=== PATIENT | female | born 1990 | race African-American/Black ===

== ENCOUNTER 2024-10-25 19:06 | Emergency (ER) | payer SELFPAY ==
--- NOTE | 2024-10-25 19:23 | EDPHYS ---
Physician Documentation [facility] Name: Deana Villareal Age: 33 yrs Sex: Female : 1990 Arrival Date: 10/25/2024 Time: 19:06 Bed IW1 Private MD: ED Physician Magdaleno Kelsey HPI: 10/25 19:25 This 33 yrs old Female presents to ER via Ambulatory with complaints of Toothache. sb4 19:25 Diffuse dental pain for 3 days now, slowly getting worse. States the pain is radiating sb4 to her ears and her head. Denies any fever or chills. Has known bad teeth, has not seen a dentist in quite some time. 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 - Infectious Disease History:: Denies. - Social history:: Smoking status: Patient reports the use of cigarette tobacco products, denies chronic smoking, but will smoke occasionally, Patient uses alcohol, occasionally. ROS: 19:25 Constitutional: Negative for fever, chills, and weight loss, sb4 19:25 ENT: Positive for dental pain, 19:25 All other systems are negative, Exam: 19:25 Head/Face: Normocephalic, atraumatic. Eyes: Extra-ocular motions intact. Periorbital sb4 areas with no swelling, redness, or edema. ENT: Mucous membranes moist. Respiratory: No increased work of breathing, no retractions or nasal flaring. Skin: Warm, dry with normal turgor. Normal color with no rashes, no lesions, and no evidence of cellulitis. 19:25 Constitutional: The patient appears alert, awake, uncomfortable, 19:25 ENT: TM's: are normal, no acute changes, Dental exam: dental caries, that is moderate, diffusely, fractured teeth are noted, specifically the lower left first molar (#19), gum swelling, that is mild, Vital Signs: 19:11 BP 145 / 100; Pulse 79; Resp 18; Temp 98.4; Pulse Ox 98% ; Weight 58.97 kg; Height 5 kb4 ft. 1 in. ; Pain 9/10; 19:11 Body Mass Index 24.56 (58.97 kg, 154.94 cm) kb4 19:11 Pain Scale: Adult kb4 MDM: 19:22 Medical Screening Exam initiated sb4 19:26 Differential diagnosis: dental caries, gingivitis, dental abscess. Data reviewed: vital sb4 signs, nurses notes, and as a result, I will discharge patient. Counseling: I had a detailed discussion with the patient and/or guardian regarding the historical points, exam findings, and any diagnostic results supporting the discharge/admit diagnosis, the presence of at least one elevated blood pressure reading (>120/80) during this emergency department visit, the need for outpatient follow up, for definitive care, to return to the emergency department if symptoms worsen or persist or if there are any questions or concerns that arise at home. Administered Medications: 19:37 Drug: Hydrocodone-Acetaminophen PO (7.5 mg-325 mg) 1 tabs PO once Route: PO; kb4 19:38 Follow up: Response: Medication administered at discharge. kb4 19:37 Drug: Ondansetron PO 4 mg PO once Route: PO; kb4 19:38 Follow up: Response: Medication administered at discharge. kb4 19:38 Drug: Clindamycin PO 300 mg PO once Route: PO; kb4 19:38 Follow up: Response: Medication administered at discharge. kb4 19:38 Drug: Ketorolac IM 30 mg IM once Route: IM; Site: right deltoid; kb4 19:38 Follow up: Response: Medication administered at discharge. kb4 Disposition: 20:04 Co-signature as Attending Physician, Magdaleno Kelsey DO I reviewed the patient's care tt7 provided by the Advanced Practice Provider and agree with the diagnosis and treatment plan. Disposition Summary: 10/25/24 19:22 Discharge Ordered Notes: Location: Home sb4 Problem: new sb4 Symptoms: have improved sb4 Condition: Stable sb4 Diagnosis - Dental caries, unspecified sb4 Followup: sb4 - With: Private Physician - When: As needed - Reason: Recheck today's complaints, Re-evaluation by your physician Discharge Instructions: - Discharge Summary Sheet sb4 - Dental Caries, Adult sb4 - Dental Pain, [id number] sb4 Forms: - Antibiotic Education sb4 - Patient Portal Instructions sb4 - Leadership Thank You Letter sb4 Prescriptions: - Peridex 0.12 % Mucous Membrane Mouthwash - swish 15 milliliter BUCCAL route 2 times per day; 473 milliliter; Refills: 0, sb4 Product Selection Permitted - Clindamycin HCl 300 mg Oral Capsule - take 1 capsule ORAL route every 6 hours for 10 days; 40 capsule; Refills: 0, sb4 Product Selection Permitted - Ibuprofen 800 mg Oral Tablet - take 1 tablet ORAL route every 8 hours As needed take with food; 30 tablet; sb4 Refills: 0, Product Selection Permitted Signatures: Krystle Chadwick PA-C PA-C sb4 Shae Lazo RN RN kb4 Magdaleno Kelsey DO DO tt7
--- NOTE | 2024-10-25 19:23 | ER ---
Nurse's Notes [facility] Name: Deana Villareal Age: 33 yrs Sex: Female : 1990 Arrival Date: 10/25/2024 Time: 19:06 Bed IW1 Private MD: Diagnosis: Dental caries, unspecified Presentation: 10/25 19:11 Chief complaint: Patient states: pt states entire jaw hurts and radiates to entire kb4 head, started 3days ago, worse today. Coronavirus screen: At this time, unable to obtain information related to travel outside the [place] Ebola Screen: No symptoms or risks identified at this time. Initial Sepsis Screen: Does the patient meet any 2 criteria? No. Patient's initial sepsis screen is negative. Does the patient have a suspected source of infection? No. Patient's initial sepsis screen is negative. Risk Assessment: Do you want to hurt yourself or someone else? Patient reports no desire to harm self or others. Onset of symptoms was October 23, 2024 at 00:00. Care prior to arrival: Medication(s) given: ibuprophen 200mg. 19:11 Method Of Arrival: Ambulatory 4 19:11 Acuity: ZOYA 4 kb4 Triage Assessment: 19:17 General: Appears distressed, uncomfortable, Behavior is calm, cooperative. Pain: kb4 Complains of pain in face. EENT: Reports pain in forehead, right jaw and left jaw. 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 - Infectious Disease History:: Denies. - Social history:: Smoking status: Patient reports the use of cigarette tobacco products, denies chronic smoking, but will smoke occasionally, Patient uses alcohol, occasionally. Screenin:39 [facility] ED Fall Risk Assessment (Adult) History of falling in the last 3 months, kb4 including since admission No falls in past 3 months (0 pts) Confusion or Disorientation No (0 pts) Intoxicated or Sedated No (0 pts) Impaired Gait No (0 pts) Mobility Assist Device Used No (0 pt) Altered Elimination No (0 pt) Score/Fall Risk Level 0 - 2 = Low Risk. Abuse screen: Denies threats or abuse. Denies injuries from another. Nutritional screening: No deficits noted. Tuberculosis screening: No symptoms or risk factors identified. Assessment: 19:39 Reassessment: Patient appears in no apparent distress at this time. see triage kb4 assessment. 19:39 Reassessment: discharge pending shot time. al5 19:57 Reassessment: patient denies any reactions to shot medication. patient discharged to al5 home in no apparent distress, respirations even and unlabored, skin warm and dry. Vital Signs: 19:11 BP 145 / 100; Pulse 79; Resp 18; Temp 98.4; Pulse Ox 98% ; Weight 58.97 kg; Height 5 kb4 ft. 1 in. ; Pain 9/10; 19:11 Body Mass Index 24.56 (58.97 kg, 154.94 cm) kb4 19:11 Pain Scale: Adult kb4 ED Course: 19:07 Patient arrived in ED. im 19:14 Krystle Chadwick PA-C is PHCP. sb4 19:14 Magdaleno Kelsey DO is Attending Physician. sb4 19:16 Triage completed. kb4 19:17 Arm band placed on right wrist. kb4 19:39 Patient has correct armband on for positive identification. Provided Education on: kb4 follow up care . 19:39 No provider procedures requiring assistance completed. Patient did not have IV access kb4 during this emergency room visit. 20:00 Yareli Tesfaye, RN is Primary Nurse. al5 Administered Medications: 19:37 Drug: Hydrocodone-Acetaminophen PO (7.5 mg-325 mg) 1 tabs PO once Route: PO; kb4 19:38 Follow up: Response: Medication administered at discharge. kb4 19:37 Drug: Ondansetron PO 4 mg PO once Route: PO; kb4 19:38 Follow up: Response: Medication administered at discharge. kb4 19:38 Drug: Clindamycin PO 300 mg PO once Route: PO; kb4 19:38 Follow up: Response: Medication administered at discharge. kb4 19:38 Drug: Ketorolac IM 30 mg IM once Route: IM; Site: right deltoid; kb4 19:38 Follow up: Response: Medication administered at discharge. kb4 Medication: 19:39 VIS not applicable for this client. kb4 Outcome: 19:22 Discharge ordered by MD. sb4 19:57 Discharged to home ambulatory, al5 19:57 Condition: good 19:57 Discharge instructions given to patient, Instructed on discharge instructions, follow up and referral plans. medication usage, Demonstrated understanding of instructions, follow-up care, medications, Prescriptions given X 3, 20:02 Patient left the ED. al5 Signatures: Krystle Chadwick, PAHaleighC PAHaleighC sb4 Sarita Cabrera Amanda RN RN al5 Shae Lazo RN RN kb4 Corrections: (The following items were deleted from the chart) 19:40 19:39 Discharge instructions given to patient, Instructed on discharge instructions, kb4 follow up and referral plans. medication usage, Demonstrated understanding of instructions, follow-up care, medications, Prescriptions given X 2, kb4 20:02 19:39 Discharged to home ambulatory, kb4 al5 20:02 19:39 Condition: good kb4 al5 20:02 19:39 Discharge instructions given to patient, Instructed on discharge instructions, al5 follow up and referral plans. medication usage, Demonstrated understanding of instructions, follow-up care, medications, Prescriptions given X 3, kb4
[2024-10-25] MEDS ORDERED: ONDANSETRON 4 MG (ODT) TAB ONE (19:33)
[2024-10-25] MEDS ORDERED: KETOROLAC 30 MG/ML INJ ONE (19:33)
[2024-10-25] MEDS ORDERED: HYDROCODONE/APAP 7.5/325 MG TAB ONE (19:34)
[2024-10-25 20:09] VITALS: BP 145/100; TEMP 98.4; O2SAT 98
== END 2024-10-25 20:02 | disposition home or self-care (01) ==
LOC: ER 19:06
DX: K02.9 Dental caries, unspecified (principal); F17.210 Nicotine dependence, cigarettes, uncomplicated; Z88.0 Allergy status to penicillin; Z88.8 Allergy status to other drugs, medicaments and biological substances; Z91.013 Allergy to seafood; Z91.041 Radiographic dye allergy status
CPT/HCPCS: 96372; 99284; Q0162

== ENCOUNTER 2024-11-15 08:57 | Emergency (ER) | payer SELFPAY ==
--- OUTSIDE RECORDS SUMMARY | 2024-11-15 09:03 | XMS REPORT | Continuity of Care Document ---
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 Interpretation Comme nts UA ICTOTEST FOR BILIRUBIN (t est code = ICTOU) NEGATIVE NEGATIVE URINE SPECIMEN TYPE CLEAN CATCHWHAT DRUGS HAVE BEEN TAKEN? UNKNOWNUA MICROSCOPIC 2022-12-14 20:43:00* Test Item Value Reference Range Interpretation Comme nts UA RBC (test code = RBCU) 3-5 RBC/HPF 0-3 A UA WBC (test code = XWBCU) 3-5 WBC/HPF 0-5 UA EPITHELIAL CELLS (test co de = EPIU) FEW EPI/HPF FEW UA BACTERIA (test code = XBACU) FEW NONE UA MUCUS (test code = MUCU) MODERATE #/LPF NONE A URINE SPECIMEN TYPE CLEAN CATCHWHAT DRUGS HAVE BEEN TAKEN? UNKNOWNDRUGS OF ABUSE SCREEN [id number] 20:43:00* Test Item Value Reference Range Interpretation Comme nts UR COCAINE (test code = COCAU) NEGATIVE NEGATIVE Cut off Value: 3 00 ng/mL UR CANNABINOIDS (THC) (test code = CANU) POSITIVE NEGATIVE A Cut off Value : 50 ng/mL UR AMPHETAMINE (test code = AMPHU) NEGATIVE NEGATIVE Cut off Value: 1 000 ng/mL UR BARBITURATE QUAL (test code = BARBQLU) NEGATIVE NEGATIVE Cut off Value: 2 00 ng/mL UR BENZODIAZEPINE (test code = BENZU) NEGATIVE NEGATIVE Cut off Value: 2 00 ng/mL UR OPIATES QUAL (test code = OPIAQLU) NEGATIVE NEGATIVE Cut off Value: 3 00 ng/mL UR PHENCYCLIDINE (PCP) (test code = PHENCU) NEGATIVE NEGATIVE Cut off Ratna ue: 25 ng/mL URINE SPECIMEN TYPE CLEAN CATCHWHAT DRUGS HAVE BEEN TAKEN? UNKNOWNRPR Ser-Titr 2022-08-23 19:34:48* Test Item Value Reference Range Interpretation Comme nts T pallidum Ab Ser Ql Aggl (t est code = 63892-2) NEGATIVE Negative, Equivocal Reagin+T pallidum IgG+IgM SerPl-Imp (test code = 63107-0) NEGATIVE Negative HHSRUBV IgG Spv-[id number] 12:49:57* Test Item Value Reference Range Interpretation Comme nts RUBV IgG Ser-Imp (test code = 55125-1) RUBELLA NON-IMMUNE Immune A HHSHIV1+2 Ab SerPl Ql [id number] 12:32:03* Test Item Value Reference Range Interpretation Comme nts HIV1+2 Ab SerPl Ql IA (test code = 29060-0) NEGATIVE Negative HHSBASIC METABOLIC [id number] 02:48:00* Test Item Value Reference Range Interpretation Comme nts SODIUM (test code = NA) 138 MMOL/L 137-145 N POTASSIUM (test code = K) 3.5 MMOL/L 3.5-5.1 N CHLORIDE (test code = CL) 104 MMOL/L 98-107 N CARBON DIOXIDE (test code = CO2) 16 MMOL/L 22-30 L GLUCOSE (test code = GLU) 120 MG/DL 74-106 H BLOOD UREA NITROGEN (test code = BUN) 3 MG/DL 7-17 L GLOMERULAR FILTRATION RATE (test code = GFR) > 60 The Glomerular Filtration Rate is a calculated parameterbased on serum Creatinine, patient age and sex. GFR valuesless than 60 mL/min/1.73 square meters are indicative ofChronic Kidney Disease. Values less than 15 mL/min/1.73square meters indicate Kidney failure. The calculation forGFR is based on the CKD-EPI (2020) calculation. This formulais race indifferent and is the recommended formula for GFRby the National Kidney Foundation for Adults.The GFR will not calculate if the sex is unknown or if thepatient's age is <18 years. CREATININE (test code = CREAT) 0.40 MG/DL 0.52-1.04 L CALCIUM (test code = CA) 10.7 MG/DL 8.4-10.2 H HEPATIC FUNCTION [id number] 02:48:00* Test Item Value Reference Range Interpretation Comme nts TOTAL PROTEIN (test code = PROT) 9.0 G/DL 6.3-8.2 H [facility] Clinical D iagnostic has made us aware of newinformation regarding the potential interference ofEltrombopag (a bone marrow stimulant used to treatthrombocytonmenia and aplastic anemia) with specific assayson the Vitros 5600 of which Total Protein is one of thoseassays performed in our lab.Interference testing performed at Ortho determined thatEltrombopag does interfere with Vitros Total Protein asfollowsEltrombopag Interference for Vitros Product Total Protein: Eltrombopag Max Observed Avg. BiasConcentration Concentration Concentration 2.5 mg/dl 6.0 g/dl +0.41 +0.34 3.5 mg/dl 6.0 g/dl +0.50 +0.45 5 mg/dl 6.0 g/dl +0.73 +0.65 2.5 mg/dl 8.0 g/dl +0.44 +0.41 3.5 mg/dl 8.0 g/dl +0.55 +0.52 5 mg/dl 8.0 g/dl +0.86 +0.77 ALBUMIN (test code = ALB) 4.8 G/DL 3.5-5.0 N BILIRUBIN TOTAL (test code = BILT) 0.9 MG/DL 0.2-1.3 N Eltrombopag Inte rference for Vitros Product TBil, BuBc: Assay Eltrombopag Analyte/ Max Observed Avg. Bias Concentration Concentration Concentration TBil 7mg/dl TBil/ 1.2mg/dl +0.23mg.dl +0.20mg/dlBuBc 3.5mg/dl Bu/0.8mg/dl +0.25mg/dl +0.24mg/dlBuBc 7 mg/dl Bu/14.2mg/dl +0.38mg/dl +0.25mg/dlBuBc 5mg/dl Bc/0mg/dl +0.25mg/dl +0.15mg/dlBuBc 3.5mg/dl Bc/2.8mg/dl +0.25mg/dl +0.23mg/dl BILIRUBIN DIRECT (test code = BILD) 0.0 MG/DL 0.0-0.3 N Eltrombopag Inte rference for Vitros Product TBil, BuBc: Assay Eltrombopag Analyte/ Max Observed Avg. Bias Concentration Concentration Concentration TBil 7mg/dl TBil/ 1.2mg/dl +0.23mg.dl +0.20mg/dlBuBc 3.5mg/dl Bu/0.8mg/dl +0.25mg/dl +0.24mg/dlBuBc 7 mg/dl Bu/14.2mg/dl +0.38mg/dl +0.25mg/dlBuBc 5mg/dl Bc/0mg/dl +0.25mg/dl +0.15mg/dlBuBc 3.5mg/dl Bc/2.8mg/dl +0.25mg/dl +0.23mg/dl SGOT/AST (test code = AST) 20 UNITS/L 14-36 N SGPT/ALT (test code = ALT) 15 UNITS/L 0-34 N ALKALINE PHOSPHATASE (test code = ALKP) 59 UNITS/L 38-126 N [id number] 02:48:00* Test Item Value Reference Range Interpretation Comme nts LIPASE (test code = LIP) 45 UNITS/L 23-300 N HCG [id number] 02:48:00* Test Item Value Reference Range Interpretation Comme nts HCG SERUM (test code = HCG) 62116 IU/L HCG in non-pregn ant individuals < 5.0 IU/L (mIU/mL)HCG results greater than or equal to 25 IU/L are consideredPositive. Detection of very low levels of HCG does not excludepregnancy. Repeat testing after 48 hours is recommended. Gestational Age:1-10 weeks 44.71-256,740 IU/L(mIU/mL)11-15 weeks 11,556-256,380 IU/L(mIU/mL)16-22 weeks 7,480.8-111,954 IU/L(mIU/mL)23-40 weeks 1,531.1-101,556 IU/L(mIU/mL) This assay should not be used to diagnose any conditionunrelated to . URINALYSIS [id number] 01:51:00* Test Item Value Reference Range Interpretation Comme nts UA COLOR (test code = COLU) YELLOW YELLOW UA APPEARANCE (test code = APPU) CLEAR CLEAR UA GLUCOSE DIPSTICK (test co de = DGLUU) NORMAL MG/DL NORMAL UA BILIRUBIN DIPSTICK (test code = BILU) NEGATIVE MG/DL NEGATIVE UA KETONE DIPSTICK (test cod e = KETU) 150 MG/DL NEGATIVE A UA SPECIFIC GRAVITY (test co de = SGU) 1.030 1.003-1.030 N UA BLOOD DIPSTICK (test code = RIMMA) 25 Gerardo/mm3 NEGATIVE A UA PH DIPSTICK (test code = JOSE) 6.0 5.0-9.0 N UA PROTEIN DIPSTICK (test co de = PROU) 100 MG/DL NEGATIVE A UA UROBILINIOGEN DIPSTICK (test code = URO) 1 MG/DL NORMAL A UA NITRITE DIPSTICK (test co de = SARA) NEGATIVE NEGATIVE UA LEUKOCYTE ESTERASE DIPSTI CK (test code = LEUU) NEGATIVE /mm3 NEGATIVE UA [id number] 01:51:00* Test Item Value Reference Range Interpretation Comme nts UA RBC (test code = RBCU) 3-5 RBC/HPF 0-3 A UA WBC (test code = XWBCU) 0-3 WBC/HPF 0-5 UA EPITHELIAL CELLS (test co de = EPIU) FEW EPI/HPF FEW UA BACTERIA (test code = XBACU) NONE NONE CBC W/AUTO [id number] 00:54:00* Test Item Value Reference Range Interpretation Comme nts WHITE BLOOD CELL (test code = WBC) 17.6 K/MM3 3.8-9.8 H RED BLOOD CELL (test code = RBC) 3.82 M/MM3 3.58-4.97 N HEMOGLOBIN (test code = HGB) 13.4 G/DL 11.2-14.9 N HEMATOCRIT (test code = HCT) 35.9 % 33.2-43.5 N MEAN CELL VOLUME (test code = MCV) 94 fL 80.7-99.1 N MEAN CELL HGB (test code = MCH) 35.1 pg 27.0-34.1 H MEAN CELL HGB CONCETRATION (test code = MCHC) 37.3 % 32.2-35.7 H RED CELL DISTRIBUTION WIDTH (test code = RDW) 12.1 % 12.1-15.2 N PLATELET COUNT (test code = PLT) 381 K/MM3 129-368 H MEAN PLATELET VOLUME (test c ode = MPV) 9.2 fl 7.4-10.4 N NEUTROPHIL % (test code = NT%) 91.1 % 43-75 H IMMATURE GRANULOCYTE % (test code = IG%) 0.5 % 0.0-2.0 N LYMPHOCYTE % (test code = LY%) 5.2 % 14-44 L MONOCYTE % (test code = MO%) 3.1 % 4-13 L EOSINOPHIL % (test code = EO%) 0.0 % 0-6 N BASOPHIL % (test code = BA%) 0.1 % 0-2 N NUCLEATED RBC % (test code = NRBC%) 0.0 % 0-1.0 N NEUTROPHIL # (test code = NT#) 16.07 K/mm3 2.0-7.6 H IMMATURE GRANULOCYTE # (test code = IG#) 0.08 x10 3/uL 0-0.03 H LYMPHOCYTE # (test code = LY#) 0.91 K/mm3 1.0-3.8 L MONOCYTE # (test code = MO#) 0.54 K/mm3 0.1-0.8 N EOSINOPHIL # (test code = EO#) 0.00 K/mm3 0.0-0.2 N BASOPHIL # (test code = BA#) 0.02 K/mm3 0.0-0.2 N NUCLEATED RBC # (test code = NRBC#) 0.00 K/mm3 0.0-0.1 N BASIC METABOLIC [id number] 22:56:00* Test Item Value Reference Range Interpretation Comme nts SODIUM (test code = NA) 134 MMOL/L 137-145 L POTASSIUM (test code = K) 3.0 MMOL/L 3.5-5.1 L CHLORIDE (test code = CL) 102 MMOL/L 98-107 N CARBON DIOXIDE (test code = CO2) 20 MMOL/L 22-30 L ANION GAP (test code = GAP) 15 MMOL/L 14-24 N GLUCOSE (test code = GLU) 115 MG/DL 74-106 H BLOOD UREA NITROGEN (test code = BUN) 3 MG/DL 7-17 L GLOMERULAR FILTRATION RATE (test code = GFR) > 60 The Glomerular Filtration Rate is a calculated parameterbased on serum Creatinine, patient age and sex. GFR valuesless than 60 mL/min/1.73 square meters are indicative ofChronic Kidney Disease. Values less than 15 mL/min/1.73square meters indicate Kidney failure. The calculation forGFR is based on the CKD-EPI (202) calculation. This formulais race indifferent and is the recommended formula for GFRby the National Kidney Foundation for Adults.The GFR will not calculate if the sex is unknown or if thepatient's age is <18 years. CREATININE (test code = CREAT) 0.40 MG/DL 0.52-1.04 L CALCIUM (test code = CA) 9.7 MG/DL 8.4-10.2 N HEPATIC FUNCTION [id number] 22:56:00* Test Item Value Reference Range Interpretation Comme nts TOTAL PROTEIN (test code = PROT) 8.3 G/DL 6.3-8.2 H Ortho Clinical D iagnostic has made us aware of newinformation regarding the potential interference ofEltrombopag (a bone marrow stimulant used to treatthrombocytonmenia and aplastic anemia) with specific assayson the Vitros 5600 of which Total Protein is one of thoseassays performed in our lab.Interference testing performed at [facility] determined thatEltrombopag does interfere with Vitros Total Protein asfollowsEltrombopag Interference for Vitros Product Total Protein: Eltrombopag Max Observed Avg. BiasConcentration Concentration Concentration 2.5 mg/dl 6.0 g/dl +0.41 +0.34 3.5 mg/dl 6.0 g/dl +0.50 +0.45 5 mg/dl 6.0 g/dl +0.73 +0.65 2.5 mg/dl 8.0 g/dl +0.44 +0.41 3.5 mg/dl 8.0 g/dl +0.55 +0.52 5 mg/dl 8.0 g/dl +0.86 +0.77 ALBUMIN (test code = ALB) 4.5 G/DL 3.5-5.0 N BILIRUBIN TOTAL (test code = BILT) 0.6 MG/DL 0.2-1.3 N Eltrombopag Inte rference for Vitros Product TBil, BuBc: Assay Eltrombopag Analyte/ Max Observed Avg. Bias Concentration Concentration Concentration TBil 7mg/dl TBil/ 1.2mg/dl +0.23mg.dl +0.20mg/dlBuBc 3.5mg/dl Bu/0.8mg/dl +0.25mg/dl +0.24mg/dlBuBc 7 mg/dl Bu/14.2mg/dl +0.38mg/dl +0.25mg/dlBuBc 5mg/dl Bc/0mg/dl +0.25mg/dl +0.15mg/dlBuBc 3.5mg/dl Bc/2.8mg/dl +0.25mg/dl +0.23mg/dl BILIRUBIN DIRECT (test code = BILD) 0.0 MG/DL 0.0-0.3 N Eltrombopag Inte rference for Vitros Product TBil, BuBc: Assay Eltrombopag Analyte/ Max Observed Avg. Bias Concentration Concentration Concentration TBil 7mg/dl TBil/ 1.2mg/dl +0.23mg.dl +0.20mg/dlBuBc 3.5mg/dl Bu/0.8mg/dl +0.25mg/dl +0.24mg/dlBuBc 7 mg/dl Bu/14.2mg/dl +0.38mg/dl +0.25mg/dlBuBc 5mg/dl Bc/0mg/dl +0.25mg/dl +0.15mg/dlBuBc 3.5mg/dl Bc/2.8mg/dl +0.25mg/dl +0.23mg/dl SGOT/AST (test code = AST) 19 UNITS/L 14-36 N SGPT/ALT (test code = ALT) 17 UNITS/L 0-34 ALKALINE PHOSPHATASE (test code = ALKP) 44 UNITS/L 38-126 N [id number] 22:56:00* Test Item Value Reference Range Interpretation Comme nts LIPASE (test code = LIP) 93 UNITS/L 23-300 N HCG [id number] 22:56:00* Test Item Value Reference Range Interpretation Comme nts HCG SERUM (test code = HCG) 175469 IU/L HCG in non-pregn ant individuals < 5.0 IU/L (mIU/mL)HCG results greater than or equal to 25 IU/L are consideredPositive. Detection of very low levels of HCG does not excludepregnancy. Repeat testing after 48 hours is recommended. Gestational Age:1-10 weeks 44.71-256,740 IU/L(mIU/mL)11-15 weeks 11,556-256,380 IU/L(mIU/mL)16-22 weeks 7,480.8-111,954 IU/L(mIU/mL)23-40 weeks 1,531.1-101,556 IU/L(mIU/mL) This assay should not be used to diagnose any conditionunrelated to . URINALYSIS [id number] 21:12:00* Test Item Value Reference Range Interpretation Comme nts UA COLOR (test code = COLU) YELLOW YELLOW UA APPEARANCE (test code = APPU) CLEAR CLEAR UA GLUCOSE DIPSTICK (test co de = DGLUU) NORMAL MG/DL NORMAL UA BILIRUBIN DIPSTICK (test code = BILU) 1 MG/DL NEGATIVE A UA KETONE DIPSTICK (test cod e = KETU) 150 MG/DL NEGATIVE A UA SPECIFIC GRAVITY (test co de = SGU) 1.025 1.003-1.030 N UA BLOOD DIPSTICK (test code = RIMMA) 25 Gerardo/mm3 NEGATIVE A UA PH DIPSTICK (test code = JOSE) 6.0 5.0-9.0 N UA PROTEIN DIPSTICK (test co de = PROU) 30 MG/DL NEGATIVE A UA UROBILINIOGEN DIPSTICK (t est code = URO) 4 MG/DL NORMAL A UA NITRITE DIPSTICK (test co de = SARA) NEGATIVE NEGATIVE UA LEUKOCYTE ESTERASE DIPSTI CK (test code = LEUU) TRACE /mm3 NEGATIVE A SOURCE OF URINE: CLEAN CATCHUA ICTOTEST FOR [id number] 21:12:00* Test Item Value Reference Range Interpretation Comme nts UA ICTOTEST FOR BILIRUBIN (t est code = ICTOU) NEGATIVE NEGATIVE SOURCE OF URINE: CLEAN CATCHUA [id number] 21:12:00* Test Item Value Reference Range Interpretation Comme nts UA RBC (test code = RBCU) 3-5 RBC/HPF 0-3 A UA WBC (test code = XWBCU) 3-5 WBC/HPF 0-5 UA EPITHELIAL CELLS (test co de = EPIU) FEW EPI/HPF FEW UA BACTERIA (test code = XBACU) FEW NONE SOURCE OF URINE: CLEAN CATCHCBC W/O [id number] 20:34:00* Test Item Value Reference Range Interpretation Comme nts WHITE BLOOD CELL (test code = WBC) 11.0 K/MM3 3.8-9.8 H RED BLOOD CELL (test code = RBC) 3.66 M/MM3 3.58-4.97 N HEMOGLOBIN (test code = HGB) 12.9 G/DL 11.2-14.9 N HEMATOCRIT (test code = HCT) 34.6 % 33.2-43.5 N MEAN CELL VOLUME (test code = MCV) 95 fL 80.7-99.1 N MEAN CELL HGB (test code = MCH) 35.2 pg 27.0-34.1 H MEAN CELL HGB CONCETRATION (test code = MCHC) 37.3 % 32.2-35.7 H RED CELL DISTRIBUTION WIDTH (test code = RDW) 11.9 % 12.1-15.2 L PLATELET COUNT (test code = PLT) 329 K/MM3 129-368 N NEUTROPHIL # (test code = NT#) 7.68 K/mm3 2.0-7.6 H IMMATURE GRANULOCYTE # (test code = IG#) 0.03 x10 3/uL 0-0.03 N LYMPHOCYTE # (test code = LY#) 2.63 K/mm3 1.0-3.8 N MONOCYTE # (test code = MO#) 0.61 K/mm3 0.1-0.8 N EOSINOPHIL # (test code = EO#) 0.06 K/mm3 0.0-0.2 N BASOPHIL # (test code = BA#) 0.02 K/mm3 0.0-0.2 N NUCLEATED RBC # (test code = NRBC#) 0.00 K/mm3 0.0-0.1 N - DUP AB/PEL/SC [id number] 20:01:00 [facility] 1990 Sex: F Patient Name: ALONSO ZURITA Unit No: [id number] EXAMS: CPT CODE: [id number] DUP AB/PEL/SC LTD 60766 EXAM: - USPREG 1ST TRIMTR, - DUP AB/PEL/SC LTD HISTORY: Pelvic pain. TECHNIQUE: Routine pelvic imaging is performed. COMPARISONS: None available. FINDINGS: Intrauterine gestational sac noted. A yolk sac and embryonic pole are identified. Onyx-rump length measures 3.8 cm. Correlates with a 10-week 5-day IUP.There is 175 bpm identifiable heart rate with M-mode imaging. The ovaries are unremarkable.With theright ovary measuring 2.9 cm x 1.3 cm x 1.2 cm and the left ovary measuring 3.3 cm x 1.7 cm x 1 cm.There is arterial and venous flow to both ovaries noted. There is no adnexal mass or free fluid. IMPRESSION: SINGLE INTRAUTERINE WITH GESTATIONAL AGE OF 10 WEEKS 5 DAYS +/- 1 WEEK 0 DAYS. Location: [facility] at 2001 Reported and signed by: Karlos Colón MD CC: Denver Mclaughlin DO Technologist: Sara Mullen RDMS AB Transcrpt Date/Tm/Trnsp: 07/17/2022 (2000) RoR.[email or web address] Orig Print D/T: S: 07/17/2022 (2004) [facility] NAME: ALONSO ZURITA [id number] PHYS: TEODORO [place] [address] : 1990 AGE: 31 SEX: F LOC: ZRenaeERS PHONE #: [phone] EXAM DATE: 07/17/2022 STATUS: REG ER FAX #: [phone] RADIOLOGY NO: [id number] PAGE 1 Signed Report- US PREG 1ST [id number] 20:01:00 [facility] 1990 Sex: F Patient Name: ALONSO ZURITA Unit No: [id number] EXAMS: CPT CODE: [id number] US PREG 1ST TRIMTR 98375 EXAM: - USPREG 1ST TRIMTR, - DUP AB/PEL/SC LTD HISTORY: Pelvic pain. TECHNIQUE: Routine pelvic imaging is performed. COMPARISONS: None available. FINDINGS: Intrauterine gestational sac noted. A yolk sac and embryonic pole are identified. Onyx-rump length measures 3.8 cm. Correlates with a 10-week 5-day IUP.There is 175 bpm identifiable heart rate with M-mode imaging. The ovaries are unremarkable.With theright ovary measuring 2.9 cm x 1.3 cm x 1.2 cm and the left ovary measuring 3.3 cm x 1.7 cm x 1 cm.There is arterial and venous flow to both ovaries noted. There is no adnexal mass or free fluid. IMPRESSION: SINGLE INTRAUTERINE WITH GESTATIONAL AGE OF 10 WEEKS 5 DAYS +/- 1 WEEK 0 DAYS. Location: [facility] at 2000 Reported and signed by: Karlos Colón MD CC: Denver Mclaughlin DO Technologist: Sara Mullen RDMS AB Transcrpt Date/Tm/Trnsp: 07/17/2022 (2000) [email or web address] Orig Print D/T: S: 07/17/2022 (2004) [facility] NAME: ALONSO ZURITA [id number] PHYS: [place] [address] : 1990 AGE: 31 SEX: F LOC: BITA PHONE #: [phone] EXAM DATE: 07/17/2022 STATUS: REG ER FAX #: [phone] RADIOLOGY NO: [id number] PAGE 1 Signed ReportCOMPREHENSIVE METABOLIC [id number] 04:45:00* Test Item Value Reference Range Interpretation Comme nts SODIUM (test code = NA) 139 MMOL/L 137-145 N POTASSIUM (test code = K) 3.4 MMOL/L 3.5-5.1 L CHLORIDE (test code = CL) 101 MMOL/L 98-107 N CARBON DIOXIDE (test code = CO2) 25 MMOL/L 22-30 N ANION GAP (test code = GAP) 16 MMOL/L 14-24 N GLUCOSE (test code = GLU) 129 MG/DL 74-106 H BLOOD UREA NITROGEN (test code = BUN) 6 MG/DL 7-17 L GLOMERULAR FILTRATION RATE (test code = GFR) > 60 The Glomerular Filtration Rate is a calculated parameterbased on serum Creatinine, patient age and sex. GFR valuesless than 60 mL/min/1.73 square meters are indicative ofChronic Kidney Disease. Values less than 15 mL/min/1.73square meters indicate Kidney failure. The calculation forGFR is based on the CKD-EPI (2020) calculation. This formulais race indifferent and is the recommended formula for GFRby the National Kidney Foundation for Adults.The GFR will not calculate if the sex is unknown or if thepatient's age is <18 years. CREATININE (test code = CREAT) 0.40 MG/DL 0.52-1.04 L TOTAL PROTEIN (test code = PROT) 9.6 G/DL 6.3-8.2 H [facility] Clinical D iagnostic has made us aware of newinformation regarding the potential interference ofEltrombopag (a bone marrow stimulant used to treatthrombocytonmenia and aplastic anemia) with specific assayson the Vitros 5600 of which Total Protein is one of thoseassays performed in our lab.Interference testing performed at Ortho determined thatEltrombopag does interfere with Vitros Total Protein asfollowsEltrombopag Interference for Vitros Product Total Protein: Eltrombopag Max Observed Avg. BiasConcentration Concentration Concentration 2.5 mg/dl 6.0 g/dl +0.41 +0.34 3.5 mg/dl 6.0 g/dl +0.50 +0.45 5 mg/dl 6.0 g/dl +0.73 +0.65 2.5 mg/dl 8.0 g/dl +0.44 +0.41 3.5 mg/dl 8.0 g/dl +0.55 +0.52 5 mg/dl 8.0 g/dl +0.86 +0.77 ALBUMIN (test code = ALB) 4.9 G/DL 3.5-5.0 N CALCIUM (test code = CA) 10.7 MG/DL 8.4-10.2 H BILIRUBIN TOTAL (test code = BILT) 0.8 MG/DL 0.2-1.3 N Eltrombopag Inte rference for Vitros Product TBil, BuBc: Assay Eltrombopag Analyte/ Max Observed Avg. Bias Concentration Concentration Concentration TBil 7mg/dl TBil/ 1.2mg/dl +0.23mg.dl +0.20mg/dlBuBc 3.5mg/dl Bu/0.8mg/dl +0.25mg/dl +0.24mg/dlBuBc 7 mg/dl Bu/14.2mg/dl +0.38mg/dl +0.25mg/dlBuBc 5mg/dl Bc/0mg/dl +0.25mg/dl +0.15mg/dlBuBc 3.5mg/dl Bc/2.8mg/dl +0.25mg/dl +0.23mg/dl SGOT/AST (test code = AST) 26 UNITS/L 14-36 N SGPT/ALT (test code = ALT) 23 UNITS/L 0-34 N ALKALINE PHOSPHATASE (test code = ALKP) 60 UNITS/L 38-126 N [id number] 04:45:00* Test Item Value Reference Range Interpretation Comme nts LIPASE (test code = LIP) 91 UNITS/L 23-300 N HCG [id number] 04:45:00* Test Item Value Reference Range Interpretation Comme nts HCG SERUM (test code = HCG) 38773 IU/L HCG in non-pregn ant individuals < 5.0 IU/L (mIU/mL)HCG results greater than or equal to 25 IU/L are consideredPositive. Detection of very low levels of HCG does not excludepregnancy. Repeat testing after 48 hours is recommended. Gestational Age:1-10 weeks 44.71-256,740 IU/L(mIU/mL)11-15 weeks 11,556-256,380 IU/L(mIU/mL)16-22 weeks 7,480.8-111,954 IU/L(mIU/mL)23-40 weeks 1,531.1-101,556 IU/L(mIU/mL) This assay should not be used to diagnose any conditionunrelated to . URINALYSIS [id number] 04:24:00* Test Item Value Reference Range Interpretation Comme nts UA COLOR (test code = COLU) YELLOW YELLOW UA APPEARANCE (test code = APPU) SLIGHT CLOUDY CLEAR UA GLUCOSE DIPSTICK (test co de = DGLUU) NORMAL MG/DL NORMAL UA BILIRUBIN DIPSTICK (test code = BILU) 1 MG/DL NEGATIVE A UA KETONE DIPSTICK (test cod e = KETU) 150 MG/DL NEGATIVE A UA SPECIFIC GRAVITY (test co de = SGU) 1.030 1.003-1.030 N UA BLOOD DIPSTICK (test code = RIMMA) 25 Gerardo/mm3 NEGATIVE A UA PH DIPSTICK (test code = JOSE) 6.0 5.0-9.0 N UA PROTEIN DIPSTICK (test co de = PROU) 100 MG/DL NEGATIVE A UA UROBILINIOGEN DIPSTICK (t est code = URO) 4 MG/DL NORMAL A UA NITRITE DIPSTICK (test co de = SARA) NEGATIVE NEGATIVE UA LEUKOCYTE ESTERASE DIPSTI CK (test code = LEUU) TRACE /mm3 NEGATIVE A SOURCE OF URINE: CLEAN CATCHWHAT DRUGS HAVE BEEN TAKEN? UA ICTOTEST FOR [id number] 04:24:00* Test Item Value Reference Range Interpretation Comme nts UA ICTOTEST FOR BILIRUBIN (t est code = ICTOU) NEGATIVE NEGATIVE SOURCE OF URINE: CLEAN CATCHWHAT DRUGS HAVE BEEN TAKEN? mjUA MICROSCOPIC 2022-06-25 04:24:00* Test Item Value Reference Range Interpretation Comme nts UA RBC (test code = RBCU) 5-10 RBC/HPF 0-3 A UA WBC (test code = XWBCU) 3-5 WBC/HPF 0-5 UA EPITHELIAL CELLS (test co de = EPIU) RARE EPI/HPF FEW UA BACTERIA (test code = XBACU) RARE NONE SOURCE OF URINE: CLEAN CATCHWHAT DRUGS HAVE BEEN TAKEN? mjDRUGS OF ABUSE SCREEN [id number] 04:24:00* Test Item Value Reference Range Interpretation Comme nts UR COCAINE (test code = COCAU) NEGATIVE NEGATIVE Cut off Value: 3 00 ng/mL UR CANNABINOIDS (THC) (test code = CANU) POSITIVE NEGATIVE A This is a Scr eening test and the Results are to be used for medical purposes only.Cut off Value: 50 ng/mL UR AMPHETAMINE (test code = AMPHU) NEGATIVE NEGATIVE Cut off Value: 1 000 ng/mL UR BARBITURATE QUAL (test code = BARBQLU) NEGATIVE NEGATIVE Cut off Value: 2 00 ng/mL UR BENZODIAZEPINE (test code = BENZU) NEGATIVE NEGATIVE Cut off Value: 2 00 ng/mL UR OPIATES QUAL (test code = OPIAQLU) NEGATIVE NEGATIVE Cut off Value: 3 00 ng/mL UR PHENCYCLIDINE (PCP) (test code = PHENCU) NEGATIVE NEGATIVE Cut off Ratna ue: 25 ng/mL SOURCE OF URINE: CLEAN CATCHWHAT DRUGS HAVE BEEN TAKEN? [facility] W/AUTO DIFF 2022-06-25 03:50:00* Test Item Value Reference Range Interpretation Comme nts WHITE BLOOD CELL (test code = WBC) 13.3 K/MM3 3.8-9.8 H RED BLOOD CELL (test code = RBC) 4.06 M/MM3 3.58-4.97 N HEMOGLOBIN (test code = HGB) 14.0 G/DL 11.2-14.9 N HEMATOCRIT (test code = HCT) 38.5 % 33.2-43.5 N MEAN CELL VOLUME (test code = MCV) 95 fL 80.7-99.1 N MEAN CELL HGB (test code = MCH) 34.5 pg 27.0-34.1 H MEAN CELL HGB CONCETRATION (test code = MCHC) 36.4 % 32.2-35.7 H RED CELL DISTRIBUTION WIDTH (test code = RDW) 11.3 % 12.1-15.2 L PLATELET COUNT (test code = PLT) 331 K/MM3 129-368 N MEAN PLATELET VOLUME (test c ode = MPV) 8.6 fl 7.4-10.4 N NEUTROPHIL % (test code = NT%) 86.7 % 43-75 H IMMATURE GRANULOCYTE % (test code = IG%) 0.3 % 0.0-2.0 N LYMPHOCYTE % (test code = LY%) 9.1 % 14-44 L MONOCYTE % (test code = MO%) 3.5 % 4-13 L EOSINOPHIL % (test code = EO%) 0.1 % 0-6 N BASOPHIL % (test code = BA%) 0.3 % 0-2 N NUCLEATED RBC % (test code = NRBC%) 0.0 % 0-1.0 N NEUTROPHIL # (test code = NT#) 11.53 K/mm3 2.0-7.6 H IMMATURE GRANULOCYTE # (test code = IG#) 0.04 x10 3/uL 0-0.03 H LYMPHOCYTE # (test code = LY#) 1.21 K/mm3 1.0-3.8 N MONOCYTE # (test code = MO#) 0.46 K/mm3 0.1-0.8 N EOSINOPHIL # (test code = EO#) 0.01 K/mm3 0.0-0.2 N BASOPHIL # (test code = BA#) 0.04 K/mm3 0.0-0.2 N NUCLEATED RBC # (test code = NRBC#) 0.00 K/mm3 0.0-0.1 N Notes Date/Time Note Provider Source 2024-08-10 09:19:00 [facility] ([facility]) EMERGENCY PROVIDER REPORT REPORT#:[id number] REPORT STATUS: Signed DATE:08/10/24 TIME: 918 PATIENT: ALONSO ZURITA UNIT #: [id number] ROOM/BED: : 88 AGE: 33 SEX: F PCP PHYS: Kings Burt MD SERVICE AUTHOR: Tawnya Engle LOCATION: [facility] REP SRV REP SRV TM: 09 * ALL edits or amendments must be made on the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 (NEGATIVE) NEGATIVE U Benzodiazepines Scrn (NEGATIVE) NEGATIVE Urine Cocaine Screen (NEGATIVE) NEGATIVE Urine Cannabinoids (NEGATIVE) POSITIVE H Urines Urine Color (YELLOW) YELLOW Urine Appearance (CLEAR) SLIGHT CLOUDY Urine pH (5.0 - 9.0) 6.0 Ur Specific [place] (1.003 - 1.030) 1.030 Urine Protein (NEGATIVE MG/DL) 100 H Urine Glucose (UA) (NORMAL MG/DL) NORMAL Urine Ketones (NEGATIVE MG/DL) 150 H Urine Blood (NEGATIVE Gerardo/mm3) 25 H Urine Nitrite (NEGATIVE) NEGATIVE Urine Bilirubin (NEGATIVE MG/DL) 1 H Urine Ictotest (NEGATIVE) NEGATIVE Urine Urobilinogen (NORMAL MG/DL) 4 H Ur Leukocyte Esterase (NEGATIVE /mm3) TRACE H Urine RBC (0 - 3 RBC/HPF) 5-10 H Urine WBC (0 - 5 WBC/HPF) 3-5 Ur Epithelial Cells (FEW EPI/HPF) RARE Urine Bacteria (NONE) RARE Lab Imaging Statement Laboratory radiographic studies reviewed and considered in the medical decision-making. Re-Evaluation MDM Re-Evaluation/Progress #1 Re-Eval Status Improved ED Course Medication(s) Ordered Medication(s) Ordered: Electrolytic, Caloric, And Latasha Sig/Negrita Start time Last Medication Dose Route Stop Time Status Admin Sodium Chloride 1,000 ML X1ED STA 06/25 0245 DC 06/25 IV 06/25 0345 0348 Gastrointestinal Drugs Sig/Negrita Start time Last Medication Dose Route Stop Time Status Admin Metoclopramide HCl 10 MG X1ED STA 06/25 0245 DC 06/25 IV 06/25 0246 0348 Patient Discharge Departure Vital Signs/Condition Vital Signs First Documented: Result Date Time Pulse Ox 100 06/25 024 B/P 116/82 06/25 024 B/P Mean 93 06/25 241 O2 Delivery Room air 06/25 241 Temp 36.9 06/25 024 Pulse 95 06/25 024 Resp 18 06/25 024 Last Documented: Result Date Time Pulse Ox 100 06/25 0242 B/P 116/82 06/25 0242 B/P Mean 93 06/25 0242 O2 Delivery Room air 06/25 024 Temp 36.9 06/25 0242 Pulse 95 06/25 0242 Resp 18 06/25 0242 All vital signs available at the time of this entry have been reviewed. Clinical Impression Clinical Impression Primary Impression: Disposition Decision Discharge )( Discharged to Home Yes )( Time 0444 )( Date 06/25/22 Discharge/Care Plan (Auto) Prescriptions Current Visit Scripts DOXYLAMINE/PYRIDOXINE (SHARIF LAMB 11/14) 1 EACH PO ASDIR Patient Instructions ED Referrals Provider Referral: Lety Keller MD Address: [address] [place] [address] [address] [place] [address] Provider Referral: Charlette Evangelista MD Address: [address] [place] [address] Provider Referral: Ramirez Carballo MD Address: [address] [place] [address] [facility] [address] [place] [address] at 0515 RPT #:[id number] END OF REPORT [facility] 2020-05-05 08:11:00 [facility] ([facility]) EMERGENCY PROVIDER REPORT REPORT#:[id number] REPORT STATUS: Signed DATE:05/05/20 TIME: 08 PATIENT: ALONSO ZURITA UNIT #: [id number] ROOM/BED: AGE: 29 SEX: F PCP PHYS: No Primary or Family Physician SERVICE AUTHOR: AGATHA QUIÑONES LOCATION: [facility] * ALL edits or amendments must be made on the electronic/computer document * HPI-Dental/Mouth Prob Free Text HPI Notes Free Text HPI Notes 29-year-old female presented emergency room complaints of left-sided toothache and lip swelling since 2 to 3 days. Patient complains of dull, achy constant left-sided toothache which includes chewing. Patient noticed increasing swelling to her gum area. Denies any fever, chills, nausea or vomiting. Denies any difficulty swallowing. General Confirmed Patient Yes Patient Type New patient Initial Greet Date/Time 05/05/20 0805 Presentation Chief Complaint Gum swelling, Jaw swelling, Tooth pain Hx Obtained From Patient Onset Occurred Gradual, Days ago (3) Symptom Duration Constant Progression since Onset Constant Caused by No trauma by history Location Buccal mucosa R Quality Aching, Painful Radiation No: Does not radiate. Severity: Onset Mild Severity: Current Mild Associated with Denies: Nausea. Associated Other Pt denies other symptoms Exacerbated by Movement, Palpation Context Immunization Status General All up to date Similar Sx Previous No Review of Systems ROS Statements All systems rev neg except as marked. Basic Review of Systems Basic ROS EYES: No redness, CV: No chest pain, : No dysuria/frequency, MS: No ext swelling/pain, HEM: No bleeding/bruising, SKIN: No rash, NEURO: No change MS , NEURO: No focal deficit Focused Review of Systems Constitutional Denies: Chills, Fatigue, Fever, Lethargy, Malaise. Ears/Nose/Throat Denies: Ear drainage bilat, Ear ringing bilat. Respiratory Denies: Cough, non-productive. GI Denies: Diarrhea, Nausea, Vomiting. Additional Review of Systems Eyes Denies: Blurred bilat, Eye pain R. Cardiovascular Denies: Chest pain. Musculoskeletal Denies: Back pain. Skin Denies: Itching, Rash. Allergy/Immun Denies: Itching. Neurologic Denies: Dizziness. Past Medical History - Adult Stated Complaint ALLERGIC REACTION Allergies Uncoded Allergies: IODINE CONTRAST (08/08/08) No Known Drug Allergies (08/08/08) No Known Other Allergies (08/08/08) SEAFOOD (08/08/08) SHELLFISH (08/08/08) SHRIMP (08/08/08) Review of Nursing Notes Rev avail, and agree Pt reports no significant: Past surgical history, Family history Smoking status: Smoking status for patients 13 years old or older: Current every day smoker Ambulatory Status Independent Physical Exam Vital Signs Vital Signs First Documented: Result Date Time Pulse Ox 96 05/05 0807 B/P 122/76 05/05 0807 B/P Mean 91 05/05 0807 O2 Delivery Room air 05/05 806 Temp 37.0 05/05 806 Pulse 100 05/05 08 Resp 18 05/05 08 Last Documented: Result Date Time Pulse Ox 96 05/05 0807 B/P 122/76 05/05 0807 B/P Mean 91 05/05 08 O2 Delivery Room air 05/05 806 Temp 37.0 05/05 806 Pulse 100 05/05 08 Resp 18 05/05 0807 Review of Vital Signs Reviewed Basic Physical Exam Basic PE GEN: Well appearing/NAD, HEAD: Atraumatic/NC, EYES: PERRL, conj clear, RESP: No resp distress, CV: Reg rate rhythm, ABD: Soft/non-tender, EXT: No gross abnormality, SKIN: No rashes, warm/dry, NEURO: alert oriented Focused PE General/Const General/Const Awake, Alert MS Head Head Atraumatic Eyes Eyes Atraumatic, PERRL Ears/Nose/Throat Dental/Gums Dental caries present, Gum swelling, Gum tenderness. MS Neck Neck Atraumatic, Supple, No meningismus, Full range of motion Resp/Chest Respiratory/Chest Atraumatic, Breath sounds NL Neurologic Neurologic Oriented X3, Speech NL Interpretation Diagnostics Point of Care Testing Pulse Oximetry Pulse Ox % 99 On: Room air Interpretation Interpreted by me, Pulse oximetry normal Time 08 Re-Evaluation MDM Free Text MDM Notes Free Text MDM Notes 29-year-old female presented emergency room complaints of left-sided toothache and lip swelling since 2 to 3 days. Patient complains of dull, achy constant left-sided toothache which includes chewing. Patient noticed increasing swelling to her gum area. Denies any fever, chills, nausea or vomiting. Denies any difficulty swallowing. We will discharge patient home with antibiotics and anti-inflammatory medication follow-up with a dentist. Differential Diagnosis Differential Diagnosis Abscess dental, Tooth eruption Patient Discharge Departure Vital Signs/Condition Vital Signs First Documented: Result Date Time Pulse Ox 96 05/05 0807 B/P 122/76 05/05 0807 B/P Mean 91 05/05 0807 O2 Delivery Room air 05/05 806 Temp 37.0 05/05 806 Pulse 100 05/05 0807 Resp 18 05/05 806 Last Documented: Result Date Time Pulse Ox 96 05/05 0807 B/P 122/76 05/05 0807 B/P Mean 91 05/05 08 O2 Delivery Room air 05/05 806 Temp 37.0 05/05 806 Pulse 100 05/05 08 Resp 18 05/05 08 All vital signs available at the time of this entry have been reviewed. Condition Stable Clinical Impression Clinical Impression Primary Impression: Dental abscess Secondary Impressions: Allergic reaction Disposition Decision Discharge )( Discharged to Home Yes )( Time 0815 )( Date 05/05/20 Discharge/Care Plan Counseled Regarding Diagnosis, Prescriptions, Need for follow-up (Auto) Prescriptions Current Visit Scripts methylPREDNISolone (MEDROL 4 MG DOSEPAK) 4 MG PO ASDIR methylPREDNISolone (MEDROL 4 MG DOSEPAK) 4 MG PO ASDIR #1 PACKET Take as directed on package. CLINDAMYCIN HCL (CLEOCIN) 300 MG PO Q6H CLINDAMYCIN HCL (CLEOCIN) 300 MG PO Q6H #40 CAPS Patient Instructions ED Dental Pain, ED General Allergic Reactions Referrals [facility] Discharge Note I have spoken with the patient and/or caregivers. I have explained the patient's condition, diagnoses and treatment plan based on the information available to me at this time. I have answered the patient's and/or caregiver's questions and addressed any concerns. The patient and/or caregivers have as good an understanding of the patient's diagnosis, condition and treatment plan as can be expected at this point. The vital signs have been stable. The patient's condition is stable and appropriate for discharge from the emergency department. The patient will pursue further outpatient evaluation with the primary care physician or other designated or consulting physician as outlined in the discharge instructions. The patient and/or caregivers are agreeable to this plan of care and follow-up instructions have been explained in detail. The patient and/or caregivers have received these instructions in written format and have expressed an understanding of the discharge instructions. The patient and/or caregivers are aware that any significant change in condition or worsening of symptoms should prompt an immediate return to this or the closest emergency department or a call to 911. at 0910 RPT #:[id number] END OF REPORT [facility] 2020-05-05 08:11:00 [facility] ([facility]) EMERGENCY PROVIDER REPORT REPORT#:[id number] REPORT STATUS: Signed DATE:05/05/20 TIME: 0811 PATIENT: ALONOS ZURITA UNIT #: [id number] ROOM/BED: AGE: 29 SEX: F PCP PHYS: No Primary or Family Physician SERVICE AUTHOR: AGATHA QUIÑONES LOCATION: [facility] * ALL edits or amendments must be made on the electronic/computer document * HPI-Dental/Mouth Prob Free Text HPI Notes Free Text HPI Notes 29-year-old female presented emergency room complaints of left-sided toothache and lip swelling since 2 to 3 days. Patient complains of dull, achy constant left-sided toothache which includes chewing. Patient noticed increasing swelling to her gum area. Denies any fever, chills, nausea or vomiting. Denies any difficulty swallowing. General Confirmed Patient Yes Patient Type New patient Initial Greet Date/Time 05/05/20 0805 Presentation Chief Complaint Gum swelling, Jaw swelling, Tooth pain Hx Obtained From Patient Onset Occurred Gradual, Days ago (3) Symptom Duration Constant Progression since Onset Constant Caused by No trauma by history Location Buccal mucosa R Quality Aching, Painful Radiation No: Does not radiate. Severity: Onset Mild Severity: Current Mild Associated with Denies: Nausea. Associated Other Pt denies other symptoms Exacerbated by Movement, Palpation Context Immunization Status General All up to date Similar Sx Previous No Review of Systems ROS Statements All systems rev neg except as marked. Basic Review of Systems Basic ROS EYES: No redness, CV: No chest pain, : No dysuria/frequency, MS: No ext swelling/pain, HEM: No bleeding/bruising, SKIN: No rash, NEURO: No change MS , NEURO: No focal deficit Focused Review of Systems Constitutional Denies: Chills, Fatigue, Fever, Lethargy, Malaise. Ears/Nose/Throat Denies: Ear drainage bilat, Ear ringing bilat. Respiratory Denies: Cough, non-productive. GI Denies: Diarrhea, Nausea, Vomiting. Additional Review of Systems Eyes Denies: Blurred bilat, Eye pain R. Cardiovascular Denies: Chest pain. Musculoskeletal Denies: Back pain. Skin Denies: Itching, Rash. Allergy/Immun Denies: Itching. Neurologic Denies: Dizziness. Past Medical History - Adult Stated Complaint ALLERGIC REACTION Allergies Uncoded Allergies: IODINE CONTRAST (08/08/08) No Known Drug Allergies (08/08/08) No Known Other Allergies (08/08/08) SEAFOOD (08/08/08) SHELLFISH (08/08/08) SHRIMP (08/08/08) Review of Nursing Notes Rev avail, and agree Pt reports no significant: Past surgical history, Family history Smoking status: Smoking status for patients 13 years old or older: Current every day smoker Ambulatory Status Independent Physical Exam Vital Signs Vital Signs First Documented: Result Date Time Pulse Ox 96 05/05 806 B/P 122/76 05/05 806 B/P Mean 91 05/05 806 O2 Delivery Room air 05/05 806 Temp 37.0 05/05 806 Pulse 100 05/05 806 Resp 18 05/05 806 Last Documented: Result Date Time Pulse Ox 96 05/05 806 B/P 122/76 05/05 806 B/P Mean 91 05/05 806 O2 Delivery Room air 05/05 806 Temp 37.0 05/05 806 Pulse 100 05/05 806 Resp 18 05/05 806 Review of Vital Signs Reviewed Basic Physical Exam Basic PE GEN: Well appearing/NAD, HEAD: Atraumatic/NC, EYES: PERRL, conj clear, RESP: No resp distress, CV: Reg rate rhythm, ABD: Soft/non-tender, EXT: No gross abnormality, SKIN: No rashes, warm/dry, NEURO: alert oriented Focused PE General/Const General/Const Awake, Alert MS Head Head Atraumatic Eyes Eyes Atraumatic, PERRL Ears/Nose/Throat Dental/Gums Dental caries present, Gum swelling, Gum tenderness. MS Neck Neck Atraumatic, Supple, No meningismus, Full range of motion Resp/Chest Respiratory/Chest Atraumatic, Breath sounds NL Neurologic Neurologic Oriented X3, Speech NL Interpretation Diagnostics Point of Care Testing Pulse Oximetry Pulse Ox % 99 On: Room air Interpretation Interpreted by me, Pulse oximetry normal Time 0815 Re-Evaluation MDM Free Text MDM Notes Free Text MDM Notes 29-year-old female presented emergency room complaints of left-sided toothache and lip swelling since 2 to 3 days. Patient complains of dull, achy constant left-sided toothache which includes chewing. Patient noticed increasing swelling to her gum area. Denies any fever, chills, nausea or vomiting. Denies any difficulty swallowing. We will discharge patient home with antibiotics and anti-inflammatory medication follow-up with a dentist. Differential Diagnosis Differential Diagnosis Abscess dental, Tooth eruption Patient Discharge Departure Vital Signs/Condition Vital Signs First Documented: Result Date Time Pulse Ox 96 05/05 806 B/P 122/76 05/05 806 B/P Mean 91 05/05 806 O2 Delivery Room air 05/05 806 Temp 37.0 05/05 806 Pulse 100 05/05 806 Resp 18 03/31 0807 Last Documented: Result Date Time Pulse Ox 96 05/05 806 B/P 122/76 05/05 806 B/P Mean 91 05/05 806 O2 Delivery Room air 05/05 806 Temp 37.0 05/05 806 Pulse 100 05/05 806 Resp 18 05/05 806 All vital signs available at the time of this entry have been reviewed. Condition Stable Clinical Impression Clinical Impression Primary Impression: Dental abscess Secondary Impressions: Allergic reaction Disposition Decision Discharge )( Discharged to Home Yes )( Time 0815 )( Date 05/05/20 Discharge/Care Plan Counseled Regarding Diagnosis, Prescriptions, Need for follow-up (Auto) Prescriptions Current Visit Scripts methylPREDNISolone (MEDROL 4 MG DOSEPAK) 4 MG PO ASDIR methylPREDNISolone (MEDROL 4 MG DOSEPAK) 4 MG PO ASDIR #1 PACKET Take as directed on package. CLINDAMYCIN HCL (CLEOCIN) 300 MG PO Q6H CLINDAMYCIN HCL (CLEOCIN) 300 MG PO Q6H #40 CAPS Patient Instructions ED Dental Pain, ED General Allergic Reactions Referrals [facility] Discharge Note I have spoken with the patient and/or caregivers. I have explained the patient's condition, diagnoses and treatment plan based on the information available to me at this time. I have answered the patient's and/or caregiver's questions and addressed any concerns. The patient and/or caregivers have as good an understanding of the patient's diagnosis, condition and treatment plan as can be expected at this point. The vital signs have been stable. The patient's condition is stable and appropriate for discharge from the emergency department. The patient will pursue further outpatient evaluation with the primary care physician or other designated or consulting physician as outlined in the discharge instructions. The patient and/or caregivers are agreeable to this plan of care and follow-up instructions have been explained in detail. The patient and/or caregivers have received these instructions in written format and have expressed an understanding of the discharge instructions. The patient and/or caregivers are aware that any significant change in condition or worsening of symptoms should prompt an immediate return to this or the closest emergency department or a call to 911. at 0910 at 1610 [facility] #:[id number] END OF REPORT [facility]
--- NOTE | 2024-11-15 09:28 | EDPHYS ---
Physician Documentation [facility] Name: Deana Villareal Age: 33 yrs Sex: Female : 1990 Arrival Date: 11/15/2024 Time: 08:57 Bed 18 Private MD: ED Physician Brendan Fish HPI: 11/15 09:16 This 33 yrs old Black Female presents to ER via Ambulatory with complaints of Headache, kb Jaw Pain. 09:16 Pt is a 33 year old female who presents for toothache that started 3 weeks ago with kb pain that radiates to head and ears. States she was seen 2 weeks ago and given clindamycin but it didn't help symptoms. Denies fever. Has appt with dentist on Sunday. Also reports sinus congestion. Historical: - Allergies: 09:07 Iodine; ll1 09:07 PENICILLINS; ll1 09:07 Shellfish Containing Products; ll1 09:07 tramadol; ll1 09:07 Amoxicillin; ll1 09:07 seafood; ll1 - PMHx: 09:07 None; ll1 - PSHx: 09:07 section; tubes tied ( section); ll1 - Immunization history:: Adult Immunizations up to date. - Infectious Disease History:: Denies. - Social history:: Smoking status: Patient reports the use of cigarette tobacco products, smokes one pack cigarettes per day. ROS: 09:16 Constitutional: As per HPI kb Exam: 09:16 Constitutional: This is a well developed, well nourished patient who is awake, alert, kb and in no acute distress. Head/Face: Normocephalic, atraumatic. Cardiovascular: Regular rate Respiratory: Respirations even and unlabored. No increased work of breathing. Talking in full sentences Skin: Warm, dry with normal turgor. Normal color. MS/ Extremity: Pulses equal, no cyanosis. Neurovascular intact. Full, normal range of motion. Neuro: Awake and alert, GCS 15, oriented to person, place, time, and situation. 09:16 ENT: Dental exam: dental caries, gum swelling, that is mild, Vital Signs: 09:08 Resp 16; Temp 97.3; Weight 63.5 kg; Height 5 ft. 1 in. ; ll1 09:12 BP 109 / 68; Pulse 84; Pulse Ox 98% ; Pain 10/10; sp 09:08 Body Mass Index 26.45 (63.50 kg, 154.94 cm) ll1 09:12 Pain Scale: Adult sp MDM: 09:03 Medical Screening Exam initiated kb 09:16 Data reviewed: vital signs, nurses notes. kb 09:18 Differential diagnosis: dental caries, gingivitis, dental abscess, pericoronitis, kb sinusitis, flu, covid. Test considered but Not performed: Labs: cbc, cmp considered but pt is nontoxic in appearance with vitals signs wnl. CT: ct considered but result would not change plan of care. Counseling: I had a detailed discussion with the patient and/or guardian regarding the historical points, exam findings, and any diagnostic results supporting the discharge/admit diagnosis, the need for outpatient follow up, a dentist, to return to the emergency department if symptoms worsen or persist or if there are any questions or concerns that arise at home. 09:27 ED course: Pt states clindamycin does not work for her and is requesting a different kb antibiotic. Pt is allergic to augmentin. Will prescribe doxycycline and pt will follow up with dentist as scheduled this week. Administered Medications: 09:45 Drug: Ketorolac IM 30 mg IM once Route: IM; Site: right deltoid; jb4 09:45 Follow up: Response: Medication administered at discharge. jb4 Disposition: 11:16 Co-signature as Attending Physician, Brendan Fish MD I reviewed the patient's care rn provided by the Advanced Practice Provider and agree with the diagnosis and treatment plan. Disposition Summary: 11/15/24 09:27 Discharge Ordered Notes: Location: Home kb Condition: Stable kb Diagnosis - Dental caries, unspecified kb Followup: kb - With: Emergency Department - When: As needed - Reason: Worsening of condition Followup: kb - With: Private Physician - When: 2 - 3 days - Reason: Recheck today's complaints, Continuance of care, Re-evaluation by your physician Discharge Instructions: - Discharge Summary Sheet kb - Dental Caries, Adult kb - Dental Pain, [id number] kb - Dental Abscess, Klth-as-Jley kb Forms: - Medication Reconciliation Form kb - Antibiotic Education kb - Prescription Opioid Use kb - Patient Portal Instructions kb - Leadership Thank You Letter kb Prescriptions: - Ibuprofen 800 mg Oral Tablet - take 1 tablet ORAL route every 8 hours As needed take with food; 30 tablet; kb Refills: 0, Product Selection Permitted - Doxycycline Hyclate 100 mg Oral Tablet - take 1 tablet ORAL route every 12 hours; 20 tablet; Refills: 0, Product kb Selection Permitted Signatures: Shelia Harris FNP-C FNP-Ckb Nieto, Roman, MD MD rn Bryson, James, RN RN jb4 Hamida Kim RN RN ll1
--- NOTE | 2024-11-15 09:28 | ER ---
Nurse's Notes [facility] Name: Deana Villareal Age: 33 yrs Sex: Female : 1990 Arrival Date: 11/15/2024 Time: 08:57 Bed 18 Private MD: Diagnosis: Dental caries, unspecified Presentation: 11/15 09:08 Chief complaint: Patient states: Here 2 weeks ago for tooth pain. Has dentist ll1 appointment this week. Pain has gotten more severe and radiating into ear and head. Coronavirus screen: Client denies travel out of the [place] in the last 14 days. At this time, the client does not indicate any symptoms associated with coronavirus-19. Ebola Screen: Patient denies travel to an Ebola-affected area in the 21 days before illness onset. Initial Sepsis Screen: Does the patient meet any 2 criteria? No. Patient's initial sepsis screen is negative. Does the patient have a suspected source of infection? No. Patient's initial sepsis screen is negative. Risk Assessment: Do you want to hurt yourself or someone else? Patient reports no desire to harm self or others. Onset of symptoms was October 25, 2024. 09:08 Method Of Arrival: Ambulatory ll1 09:08 Acuity: ZOYA 4 ll1 Historical: - Allergies: 09:07 Iodine; ll1 09:07 PENICILLINS; ll1 09:07 Shellfish Containing Products; ll1 09:07 tramadol; ll1 09:07 Amoxicillin; ll1 09:07 seafood; ll1 - PMHx: 09:07 None; ll1 - PSHx: 09:07 section; tubes tied ( section); ll1 - Immunization history:: Adult Immunizations up to date. - Infectious Disease History:: Denies. - Social history:: Smoking status: Patient reports the use of cigarette tobacco products, smokes one pack cigarettes per day. Screenin:[address] [facility] ED Fall Risk Assessment (Adult) History of falling in the last 3 months, jb4 including since admission No falls in past 3 months (0 pts) Confusion or Disorientation No (0 pts) Intoxicated or Sedated No (0 pts) Impaired Gait No (0 pts) Mobility Assist Device Used No (0 pt) Altered Elimination No (0 pt) Score/Fall Risk Level 0 - 2 = Low Risk Oriented to surroundings, Maintained a safe environment. Abuse screen: Denies threats or abuse. Nutritional screening: No deficits noted. Tuberculosis screening: No symptoms or risk factors identified. Assessment: 09:11 General: Appears in no apparent distress. comfortable, Behavior is calm, cooperative, jb4 appropriate for age. Pain: Complains of pain in mouth Pain radiates to HEAD Pain currently is 10 out of 10 on a pain scale. Neuro: Level of Consciousness is awake, alert, obeys commands. Cardiovascular: Patient's skin is warm and dry. Respiratory: Airway is patent Respiratory effort is even, unlabored, Respiratory pattern is regular, symmetrical. Derm: Skin is intact, Skin is pink, warm \T\ dry. Musculoskeletal: Circulation, motion, and sensation intact. Range of motion: intact in all extremities. Vital Signs: 09:08 Resp 16; Temp 97.3; Weight 63.5 kg; Height 5 ft. 1 in. ; ll1 09:12 BP 109 / 68; Pulse 84; Pulse Ox 98% ; Pain 10/10; sp 09:08 Body Mass Index 26.45 (63.50 kg, 154.94 cm) ll1 09:12 Pain Scale: Adult sp ED Course: 09:01 Patient arrived in ED. ts1 09:03 Shelia Harris F[facility]-C [facility]. kb 09:03 Brendan Fish MD is Attending Physician. kb 09:06 Joe Oro, RN is Primary Nurse. jb4 09:07 Arm band placed on Patient placed in an exam room, on a stretcher. ll1 09:09 Triage completed. ll1 09:11 Patient has correct armband on for positive identification. Bed in low position. Call jb4 light in reach. Side rails up X 1. Provided Education on: PLAN OF CARE. 09:11 No provider procedures requiring assistance completed. jb4 09:45 Patient did not have IV access during this emergency room visit. jb4 Administered Medications: :45 Drug: Ketorolac IM 30 mg IM once Route: IM; Site: right deltoid; jb4 09:45 Follow up: Response: Medication administered at discharge. jb4 Medication: 09:11 VIS not applicable for this client. jb4 Outcome: 09:27 Discharge ordered by . jeffery 09:45 Discharged to home ambulatory, jb4 09:45 Condition: improved 09:45 Discharge instructions given to patient, Instructed on discharge instructions, follow up and referral plans. medication usage, Demonstrated understanding of instructions, follow-up care, medications, Prescriptions given X 2, 09:45 Patient left the ED. jb4 Signatures: Shelia Harris, TAMIKA VALENCIA-Shannon [place] James, RN RN jb4 Hamida Kim RN RN ll1 Alem Ponce PAS PAS ts1
[2024-11-15] MEDS ORDERED: KETOROLAC 30 MG/ML INJ ONE (09:38)
[2024-11-15 10:55] VITALS: BP 109/68; O2SAT 98
[2024-11-15 10:56] VITALS: TEMP 97.3
== END 2024-11-15 09:45 | disposition home or self-care (01) ==
LOC: ER 08:57
DX: K02.9 Dental caries, unspecified (principal); F17.210 Nicotine dependence, cigarettes, uncomplicated
CPT/HCPCS: 96372; 99284; J1885